=== PATIENT | male | born 1955 | race Caucasian/White ===

== ENCOUNTER → 2023-12-29 13:12 | Outpatient (REF) | payer OTHER, SELFPAY | LOC: HWRAD 13:12 | PROVIDERS: ATTENDING PHYSICIAN Family Medicine | DX: R10.12 Left upper quadrant pain (principal) | CPT/HCPCS: 74160; Q9967 ==

== ENCOUNTER → 2024-09-11 08:54 | Outpatient (REF) | payer MEDICARE, OTHER, SELFPAY | LOC: RAD 08:54 | PROVIDERS: ATTENDING PHYSICIAN Specialist; FAMILY PHYSICIAN Family Medicine | DX: N20.0 Calculus of kidney (principal) | CPT/HCPCS: 74018 ==

== ENCOUNTER 2024-12-20 12:59 | Emergency (ER) | payer MEDICARE, OTHER, SELFPAY ==
[2024-12-20 13:02] VITALS: BP 169/65
[2024-12-20 13:42] VITALS: BMI 27.5
[2024-12-20] MEDS: ADACEL 0.5 ML IM (13:58)
--- NOTE | 2024-12-20 14:36 | ED.GENMED ---
History of Present Illness
General
Chief Complaint: Skin Surface Trauma
Source: patient
Exam Limitations: none
Time Seen by Provider: 12/20/24 13:50
Nursing documentation reviewed up to this point in time: agreed with
History of Present Illness
History of Present Illness:
69-year-old male with history as noted presents to the ER for evaluation of thumb laceration. Patient was moving some pipes in anticipation of changing his boiler when one of the pipe slipped and he sustained a laceration on the left thumb. He
came to the ER for assessment. No other injuries or complaints. Unsure of last tetanus shot.
Past History
Past History
ED Past Medical History: Hypercholesterolemia, IDDM and Other (impaired vision, kidney stones)
ED Past Surgical History: Cardiac (Cardiac caths with stents) and Urological (lithotripsy)
Social History
Tobacco: Former smoker
Personal:
Living: with family
Employment: Employed
Review of Systems
Review of Systems
All Other Systems: ROS reviewed and negative except as documented in HPI and ROS
Skin: Reports other (Thumb laceration)
Phy Exam
Physical Exam
Physical Exam:
General: Well appearing and non-toxic
HEENT: protecting airway
Neck: appears supple
CV: No evidence of cyanosis
Resp: No accessory muscle use
Abd: Non-distended
Extremities: No deformities
Neuro: Alert
Psych: Normal affect
Skin: Patient has a 3 cm sharp laceration on the palmar surface of the left thumb over the DIP joint�exploration of the wound shows no exposed tendon through range of motion, good strength on flexion of the thumb, no foreign body noted
Scores
Heart Failure Risk
Heart Failure Risk Score: Not Applicable
Heart Score for Chest Pain Patients
STEMI patient?: Not applicable
Withdrawal Assessment of Alcohol
Withdrawal Assessment Completed?: Not applicable
Course
Orders/Labs/Results
Orders:
Orders
12/20/24 13:51
Tetanus/Diphth/Acelpertussis [Adacel] 0.5 ml IM .ONCE ONE
Vital Signs
Initial and Last Documented VS:
Initial Vital Signs
Temp Pulse Resp BP Pulse Ox
36.9 C 59 16 169/65 97
12/20/24 13:02 12/20/24 13:02 12/20/24 13:02 12/20/24 13:02 12/20/24 13:02
Last Documented Vital Signs
Temp Pulse Resp BP Pulse Ox
36.9 C 59 16 169/65 97
12/20/24 13:02 12/20/24 13:02 12/20/24 13:02 12/20/24 13:02 12/20/24 13:02
Procedures
Laceration Closure
Left Thumb:
Status of Wound: dirty
Size of Wound in cm: 3
Description of Wound Edges: sharp
Preparation: cleaned with saline
Anesthesia: 1% Lidocaine
Revision/Debridement: routine- no revision
Wound exploration: extensive cleaning of contaminated wound
Type of Closure: single layer closure
Skin Closure Material: 5-0 nylon
Number of sutures: 5
MDM/Problems Addressed
Differential Diagnosis Includes:
Thumb laceration
MDM/Problems Addressed:
6-year-old male presents with a thumb laceration. Tetanus updated. Laceration irrigated and repaired as documented procedure note. Clean dressing applied. Stable for discharge. Spoke with follow-up plan for suture removal and return
precautions. All questions answered.
*Pulse Oximetry
SaO2: 97
Oxygen Mode of Delivery: Room air
Patient hypoxic: no (97%)
*Critical Care Note
Total Time (30-74mins, 75-104mins- exclusive of procedures): Not Applicable
Data Reviewed
Source: patient and records
ED Attending Note
-
Portions of this chart may have been created with voice recognition software.� Occasional wrong word or��sound alike� substitutions may have occurred due to the inherent limitations of voice recognition software.
Discharge Plan
Departure
Patient Disposition: Home (Routine Discharge)
Date of Disposition: 12/20/24
Time of Disposition: 14:33
Patient with high blood pressure during this ER visit?: Yes
Discharge Problem:
Laceration of thumb
Instructions: Laceration Repair With Stitches (DC)
Prescriptions:
No Action
rosuvastatin [Crestor] 40 MG tablet
40 mg PO HS
aspirin 81 MG tablet,delayed release (DR/EC)
81 mg PO DAILY
tamsulosin [Flomax] 0.4 MG capsule
0.4 mg PO DAILY
nebivolol [Bystolic] 5 MG tablet
5 mg PO BID
multivitamin Tablet
1 tab PO DAILY
lisinopril 10 mg Tablet
10 mg PO BID
ezetimibe 10 mg Tablet
10 mg PO Q48H
potassium citrate 15 mEq Tablet Extended Release
15 meq PO BID
amoxicillin 500 mg Capsule
500 mg PO Q8H Qty: 15 0RF
Referrals:
Bob Connors MD [Family Provider, [facility]] - Follow up in 1 week
Activity Restrictions/Additional Instructions:
You were seen in the emergency room with a laceration to your thumb. It was repaired with stitches. Your stitches must be removed in 7 to 10 days. You can either return to the emergency room, follow-up with your primary doctor, or go to urgent
care to have your stitches removed. If you notice any signs of infection you should return immediately to the emergency room for reassessment.
Thank you for visiting the Emergency Department at [facility].
1. Please schedule a follow up appointment as directed. Call first thing tomorrow morning to make an appointment.
2. If indicated, please take your medications as instructed and indicated on discharge paperwork.
3. If any of your symptoms do not improve, or persist, or become more severe within 6-12 hours, please return to the emergency department for further care.
4. Please return to the emergency department if you develop a headache, neck pain/stiffness, fever greater than 100.4F, chest pain, shortness of breath, persistent nausea, vomiting, slurred speech, difficulty walking, numbness/tingling, weakness,
signs of infection or any other symptoms that are worrisome to you.
Please call [phone] if you have any questions.
Interventions
Interventions:
*Risk Screen - Suicide Last Done: 12/20/24 13:02
*General Assessment Last Done: 12/20/24 13:42
*Neglect/Abuse Screening Last Done: 12/20/24 13:02
*ED- Fall Risk Assessment Last Done: 12/20/24 13:02
*ED COVID-19 Vaccine History Last Done: 12/20/24 13:42
*Nursing Disposition Last Done: 12/20/24 14:37
ED-Skin Assessment Last Done: 12/20/24 13:42
Discharge Date and Time
Print Language: FRENCH
== END 2024-12-20 14:37 | disposition home or self-care (01) ==
LOC: EMR 12:59
PROVIDERS: EMERGENCY PHYSICIAN Emergency Medicine; FAMILY PHYSICIAN Family Medicine
DX: S61.012A Laceration without foreign body of left thumb without damage to nail, initial encounter (principal); W45.8XXA Other foreign body or object entering through skin, initial encounter; Z23 Encounter for immunization; E78.00 Pure hypercholesterolemia, unspecified; E11.9 Type 2 diabetes mellitus without complications; H54.7 Unspecified visual loss; Z87.442 Personal history of urinary calculi; Z87.891 Personal history of nicotine dependence; Z95.5 Presence of coronary angioplasty implant and graft
CPT/HCPCS: 99283; 12002; 90471; 90715

== ENCOUNTER → 2025-03-21 13:03 | Outpatient (REF) | payer MEDICARE, OTHER, SELFPAY | LOC: RAD 13:03 | PROVIDERS: ATTENDING PHYSICIAN Physician Assistant Medical | DX: M54.2 Cervicalgia (principal) | CPT/HCPCS: 72040 ==